=== PATIENT | female | born 1970 | race Two or more races ===

== ENCOUNTER 2017-11-13 09:26 | Outpatient (CLI) | payer OTHER | END 2017-11-13 09:38 | disposition home or self-care (01) | LOC: MAMO-SONO 09:26 | DX: Z12.31 Encounter for screening mammogram for malignant neoplasm of breast (principal); N63.10 Unspecified lump in the right breast, unspecified quadrant; N63.20 Unspecified lump in the left breast, unspecified quadrant ==

== ENCOUNTER 2019-12-22 16:21 | Outpatient (CLI) | payer OTHER | END 2019-12-22 16:34 | disposition home or self-care (01) | LOC: RAD 16:21 | PROVIDERS: ATTEND Internal Medicine | DX: R11.10 Vomiting, unspecified (principal) ==